=== PATIENT | male | born 1995 | race African-American/Black ===

== ENCOUNTER 2025-04-08 21:27 | Emergency (ER) | payer MEDICAID ==
[~2025-04-08] VITALS: Ht 175.3 cm; Wt 81.0 kg
[2025-04-08 21:45] VITALS: BP 125/69; PULSE 58; RESP 18; O2SAT 97
--- NOTE | 2025-04-08 22:58 | Physician Documentation ---
History of Present Illness ~ Chief Complaint: Ear Pain Stated Complaint: EAR PAIN Time Seen by MD: 22:19 HPI Patient is seen today with complaints of pain in his left ear. Patient states he scratched his left ear with his finger and then now couple of days later it is very painful. He denies any drainage or discharge. He has no other concern or complaint at this time denies any changes in vision or hearing. Medication Reconciliation Allergies: Coded Allergies: amoxicillin (Verified Allergy, Unknown, hives, 04/08/25) Review of Systems Constitutional: Denies: chills, fever, weakness Eyes: Denies: pain, blurred vision ENT: Denies: ear pain, nose pain, throat pain, mouth pain Respiratory: Denies: cough, shortness of breath Cardiovascular: Denies: chest pain, palpitations Gastrointestinal: Denies: abdominal pain, nausea, vomiting Genitourinary: Denies: burning, dysuria Male Genitalia: Denies: penile discharge, testicular pain Neurological: Denies: headache, dizziness Musculoskeletal: Denies: pain, swelling Integumentary: Denies: rash, lesions Allergic/Immunologic: Denies: hives, itching Hematologic/Lymphatic: Denies: no symptoms reported Psychiatric: Denies: depression, anxiety Physical Exam Vital Signs: Temperature: 99.1, Source: Oral, Heart Rate: 58, Respiratory Rate: 18, BP: 125/69, Pulse Oximetry: 97, Weight: 81.000 Physical Exam General: Awake and Alert, no acute distress. HEENT: Patient on exam does have swelling of the left otic canal without discharge or purulent drainage at this time. Conjunctiva pink, Sclera clear, Mucus Membranes moist. Neck: Supple without masses and tenderness. Resp: Unlabored. Lungs clear to auscultation bilaterally. Heart: Regular Rate and rhythm, normal S1 and S2 without murmur, rub or gallop. Extremities: No cyanosis,clubbing or edema. Skin: Warm and Dry. Progress Results/Orders Results/Orders Vital Signs 04/08/25 21:45 Temp 99.1 Pulse 58 Resp 18 B/P (MAP) 125/69 Pulse Ox 97 Medical Decision Making Findings Patient is seen today with complaints of pain in his left ear. Patient states he scratched his left ear with his finger and then now couple of days later it is very painful. He denies any drainage or discharge. He has no other concern or complaint at this time denies any changes in vision or hearing. Patient was given Ciprodex otic drops in the left ear today and patient will continue those drops 4 times a day four drops in the left ear leading soak in the left ear for 5-10 minutes before standing up. Patient voiced understanding. Patient will do this for seven days. Follow up with primary care in 2-5 days if no better as needed sooner. Return to ED with any worsening, concerning or changing symptoms. Departure Disposition: HOME / SELF CARE / HOMELESS Impression: Primary Impression: Otitis externa Qualified Codes: H60.502 - Unspecified acute noninfective otitis externa, left ear Discharge Instructions: Earache, Adult Additional Instructions: Patient was given Ciprodex otic drops in the left ear today and patient will continue those drops 4 times a day four drops in the left ear leading soak in the left ear for 5-10 minutes before standing up. Patient voiced understanding. Patient will do this for seven days. Follow up with primary care in 2-5 days if no better as needed sooner. Return to ED with any worsening, concerning or changing symptoms. Referrals: NO PRIMARY CARE PROVIDER (PCP) Prescriptions Ciprofloxacin Hcl/Hc Otic Susp* (Cipro Hc Otic Susp*) 10 Ml Bottle 3 DROP LEFT EAR Q12H for 7 Days, #10 ML Prov: ROSALBA ORTIZ 04/08/25 Signature Scribe Signature: No scribe Attestation: No scribe ROSALBA ORTIZ PAC Apr 08, 2025 22:58
[2025-04-08] MEDS ORDERED: CIPR10DR LEFT EAR (23:04)
[2025-04-08] MEDS: CIPROFLOXACIN HCL/DEXAMETH 7.5 ML DROPS.SUSP LEFT EAR STA (23:24)
[2025-04-08 23:39] VITALS: TEMP 99.1
== END 2025-04-08 23:41 | disposition home or self-care (01) ==
LOC: ER 21:28
DX: H60.92 Unspecified otitis externa, left ear (principal); Z88.1 Allergy status to other antibiotic agents
CPT/HCPCS: 99283